=== PATIENT | male | born 1950 ===

== ENCOUNTER 2018-11-09 07:12 | Day surgery (SDC) | payer MEDICARE ==
[2018-11-05 10:25] VITALS: BMI 19.8
[2018-11-09] MEDS ORDERED: Lidocaine 2% MPF (5 ml) Inj ONE (09:52)
[2018-11-09] MEDS ORDERED: Bupivacaine HCl 0.5% PF (10 ml) Inj ONE (09:52)
[2018-11-09] MEDS ORDERED: Clindamycin 600mg/50ml NS 600 MG/50 ML BAG IVPB ONE (09:54)
[2018-11-09] MEDS ORDERED: Midazolam 2 MG/2 ML VIAL ONE (10:10)
[2018-11-09] MEDS ORDERED: Propofol 10 mg/ml Inj (20 ML) ONE (10:10)
--- NOTE | 2018-11-09 10:56 | PCM.SURG1 ---
Surgeon's Initial Post Op Note - Surgeon's Notes Surgeon: Dr. Brenda Carrasco Director Of Rehabilitation: Dr. Burks PGY-2 Type of Anesthesia: IV Sedation, Local Anesthesia Administered By: Dr. Ferrer Pre-Operative Diagnosis: right foot ulceration Operative Findings: see dictation. injectables: 8 cc of 2% lidocaine plain and 0.5% marcaine plain, 2-0 prolene, 4-0 monocril, application of ARON wound VAC and integra graft 2x2 Post-Operative Diagnosis: same Operation Performed: right foot debridement of ulcerations of all nonviable soft tissue with application of graft with application of ARON wound VAC therapy Specimen/Specimens Removed: none Estimated Blood Loss: EBL {In ML}: 1 Blood Products Given: N/A Drains Used: No Drains Post-Op Condition: Good Date of Surgery/Procedure: 11/09/18 Time of Surgery/Procedure: 11:10
[2018-11-09] MEDS ORDERED: Oxycodone/Acetaminophen 5/325 mg Tab PO PRN ×2 (11:02→11:18)
[2018-11-09] MEDS ORDERED: HYDROmorphone 0.5 mg/0.5 ml ISec IVP PRN (11:18)
[2018-11-09 12:59] VITALS: O2SAT 97
[2018-11-09 13:14] VITALS: PULSE 73
[2018-11-09 13:15] VITALS: BP 135/79; RESP 11; TEMP 97.5
[2018-11-09] MEDS ORDERED: METFORMIN HCL PO SCH (18:00)
[2018-11-09] MEDS ORDERED: SITAGLIPTIN PHOS PO SCH (18:00)
[2018-11-09] MEDS ORDERED: (Lantus) Insulin Glargine, Recombinant SC SCH (22:00)
[2018-11-10] MEDS ORDERED: [UNRECOGNIZED DRUG - OTHER] PO SCH (10:00)
[2018-11-10] MEDS ORDERED: Pantoprazole 40 mg EC Tab PO SCH (10:00)
[2018-11-10] MEDS ORDERED: Lactobacillus Acidophilus 500 MU Cap PO SCH (10:00)
[2018-11-10] MEDS ORDERED: Multiple Vitamins Tab PO SCH (10:00)
--- NOTE | 2018-11-12 12:38 | PCM.OP ---
Operative Report - Operative Report Date of Surgery/Procedure: 11/09/18 Time of Surgery/Procedure: 11:10 Surgeon: Dr. Brenda Carrasco DPM Home School Teacher: Dr. Tommy Burks DPM PGY-2 Anesthesia/Sedation: Dr. Ferrer/IV Sedation with local Pre-Operative Diagnosis: right foot nonhealing ulceration Post-Operative Diagnosis: right foot nonhealing ulceration Indication for Surgery: Indications: The patient is a 68 year-old male with the above diagnoses. The patient has exhausted conservative treatment at this time and now requests surgical intervention. The patient signed the consent after careful explanation of risks, benefits, complications and alternatives for surgical procedure. No guarantees were given nor implied. NPO status was confirmed prior to taking pt to the OR. The patient was brought to the operating room and placed on the operating room table in supine position. A well-padded pneumatic ankle tourniquet was placed to the patient's ankle in a supramalleolar position. After induction of IV sedation, the patient received a total of 8cc mL of 1:1 mixture of 0.5% Marcaine and 2% lidocaine plain in local block fashion to the right foot. Once local anesthesia was achieved, the right foot was then prepped and draped in usual sterile manner. No tourniquet was used during the entire procedure. Operative Findings: see procedure note below Procedure/Operation Description: Procedure #1: Debridement of right lower extremity wound with application of graft Attention was directed to the distal medial aspect of the patient's right foot, where a non-healing wound measuring approximately 7cm x 6cm x 0.5cm was noted with 70% fibrotic and 30% granular wound base. 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 Unitizing at #15 blade, curette, and a pickup, the wound was excisionally debrided of all fibrotic and non-viable tissue until fresh, healthy, bleeding granular tissue appeared at the surgical field. A sterile #15 blade and forceps was used to excise all hypertrophic tissue from the wound borders. Next, the ulcer was then irrigated with copious amounts of normal sterile saline. The integra bilayer graft measuring 2 x 2 cm was prepared in a basin using normal sterile saline solution. After the graft was prepared, the graft was placed over the ulceration site covering the most distal medial aspect of the ulceration. The graft adhered the to base of the ulceration site well and was noted to fully cover the site. The graft was then secured to the wound edges using 4-0 monocril. Procedure #2: application of ARON wound VAC therapy Next attention was directed to distal medial aspect of the right forefoot. The ARON dressing was applied to the wound bed and extra strips placed over the outside edge to help hold the dressing in place for a tight seal. Next the port tubing was connected to the pump tubing. When the pump was turned on, air was noted to be pulled out of the dressing and excess fluid from the wound. Then, the green indictor turned on indicating continuously negative pressure wound therapy is achieved. The entire foot was then dressed with kerlix, dsd, and TANO. Estimated Blood Loss: 1 cc Complications: none Discharge & Condition: Postoperative Condition: The patient tolerated the anesthesia and procedure well and was escorted to the recovery room with vital signs stable and neurovascular status intact to the right foot. Patient is to weight bear as tolerated to right lower extremity. Patient to follow up with Dr. Carrasco in podiatry clinic on Friday on 11/16/18 as instructed. Postoperative instructions given to patient. ARON therapy is continuously running and indictor green light is on with tight seal.
== END 2018-11-09 14:40 | disposition home or self-care (01) ==
LOC: C.SDS 07:12
PROVIDERS: ATTEND Podiatrist Foot & Ankle Surgery
DX: L97.519 Non-pressure chronic ulcer of other part of right foot with unspecified severity (principal)
CPT/HCPCS: 11043; 15004; 15275; 82948; C1781; J2250; J2704; J3010; J7070

== ENCOUNTER 2018-12-21 05:53 | Day surgery (SDC) | payer MEDICARE ==
[2018-11-05 10:25] VITALS: BMI 19.8
[2018-12-21] MEDS ORDERED: Lidocaine 2% MPF (5 ml) Inj ONE (07:25)
[2018-12-21] MEDS ORDERED: Bupivacaine HCl 0.5% PF (10 ml) Inj ONE (07:26)
[2018-12-21] MEDS ORDERED: Midazolam 2 MG/2 ML VIAL ONE (08:00)
[2018-12-21] MEDS ORDERED: Lidocaine Hydrochloride 5 ML INJ ONE (08:00)
[2018-12-21] MEDS ORDERED: Propofol 10 mg/ml Inj (20 ML) ONE (08:00)
[2018-12-21] MEDS ORDERED: ceFAZolin 1 gm in NS 1 GM/100 ML BAG IVPB ONE (08:46)
[2018-12-21] MEDS ORDERED: Acetaminophen 650mg/20.3ml solution UD PO PRN (10:07)
[2018-12-21] MEDS ORDERED: Oxycodone/Acetaminophen 5/325 mg Tab PO PRN ×2 (10:07)
--- NOTE | 2018-12-21 10:12 | PCM.SURG1 ---
Surgeon's Initial Post Op Note - Surgeon's Notes Surgeon: Dr. Brenda Carrasco Sand Technologist: Macho Lamas Type of Anesthesia: IV Sedation, Local Anesthesia Administered By: Dr. Segura Pre-Operative Diagnosis: right foot nonhealing ulcer submet 2 Operative Findings: see dictation. materials: 2-0 prolene. injectibles: 10 cc of 1:1 mixture of .5% marcaine and 2% lidocaine- preop. postop- 10 cc of 1:1 mixture of .5% marcaine and 2% lidocaine. 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
[2018-12-21] MEDS ORDERED: Lactated Ringer's 1,000 ML IV SCH (10:15)
[2018-12-21] MEDS ORDERED: HYDROmorphone 0.5 mg/0.5 ml ISec IVP PRN (10:15)
--- NOTE | 2018-12-21 10:36 | RAD ---
Date of service: 12/21/2018 PROCEDURE: Right Foot Radiographs. HISTORY: s/p second met head resection. patient in PACU COMPARISON: None. FINDINGS: BONES: The skin is status post osteotomy 2nd metatarsal head. There is evidence of old fracture or osteotomy of the distal aspect of the 3rd metatarsal diaphysis. There is callus seen about this fracture or osteotomy site at the distal aspect of the 3rd metatarsal. The patient is status post amputation mid 1st metatarsal. JOINTS: Normal. SOFT TISSUES: Surgical drain along plantar aspect of foot OTHER FINDINGS: None. IMPRESSION: Osteotomy distal 2nd metatarsal. Old fracture/osteotomy distal 3rd metatarsal. 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
[2018-12-21 11:24] VITALS: TEMP 97.6
[2018-12-21 11:49] VITALS: RESP 16
[2018-12-21 12:21] VITALS: BP 133/62; PULSE 83; O2SAT 98
--- NOTE | 2018-12-22 07:28 | RAD ---
Date of service: 12/21/2018 PROCEDURE: Intraoperative Fluoroscopy. HISTORY: Right foot nonhealing ulcer FINDINGS: Fluoroscopic assistance was provided for partial resection of bone at the 2nd digit metatarsal bone. Please refer to the operative report from JEFFERY Small.
--- NOTE | 2018-12-23 07:20 | OP ---
PROCEDURE DATE: 12/21/2018 PREOPERATIVE DIAGNOSIS: Right foot nonhealing ulcer, submetatarsal 2 with osteomyelitis of the 2nd metatarsal head POSTOPERATIVE DIAGNOSIS: Right foot nonhealing ulcer, submetatarsal 2 with osteomyelitis of the 2nd metatarsal head PROCEDURE: Resection of second metatarsal head and wound debridement with the use of Versajet with partial primary closure and application of ARON wound VAC. SURGEON: Brenda Carrasco DPM. SPLICER APPRENTICE: RITU GALAVIZ DPM, PGY-1; Macho Lamas DPM, PGY-2. ANESTHESIOLOGIST: Katelyn Joyce MD. TYPE OF ANESTHESIA: IV sedation with local anesthesia. INDICATIONS: The patient is a 68-year-old male with the above diagnosis. The patient has exhausted all conservative treatments at this time and now requires surgical intervention. The patient signed the consent after careful explanation of risks, benefits, complications, and alternatives for the surgical procedures. No guarantees were given nor implied. PREPARATION: The patient was brought into the operating room and placed on the operating room table in a supine position. A time-out was performed for identification of the correct patient and procedure. The patient received a total of 10 mL of 0.5% Marcaine plain and 2% lidocaine plain. Once local anesthesia was achieved, right foot was prepped and draped in normal sterile manner and the procedure begun. DESCRIPTION OF PROCEDURE: Attention was directed to the patient's right foot where a partial first ray amputation was noted. Submetatarsal 2, an ulcer was noted measuring approximately 0.7 cm x 0.5 cm. Second metatarsal head was noted to be protruding out of the ulcer. Mild malodor was noted. No erythema was appreciated. With the use of #15 blade, a linear incision was made extending from the proximal aspect of the ulcer. The incision was deepened through the subcutaneous tissue all the way down to the bone using a #15 blade. At this time, a second metatarsal head was noted to be loosely attached to skin and was removed. Once adequate bone was exposed, a sagittal saw was utilized to resect the second metatarsal head and neck. Bone was sent to pathology and cultures were taken. All necrotic nonviable and devitalized tissue and bone was then debrided using a Versajet at setting 7. Remaining sharp bone was then debrided down to smoothness with a bone rasp. The ulcer was thoroughly flushed with normal sterile saline. Prolene 2-0 was then utilized to reapproximate the skin in a retention suture type fashion. The site was then dressed with ARON wound VAC. The machine was noted to be functioning. The site was then dressed with sterile gauze, ABD, Kerlix, and Axel without any compression. Postoperative:The patient tolerated the local anesthesia and procedure well and was escorted to the recovery room with vital signs stable and neurovascular status intact to the right foot. The patient is to weight bear as tolerated to the right lower extremity on the heel, and the patient will follow up with Dr. Carrasco in her office within a week. Ritu Galaviz Brenda Carrasco DPM [id number]
== END 2018-12-21 12:22 | disposition home or self-care (01) ==
LOC: C.SDS 05:53
PROVIDERS: ATTEND Podiatrist Foot & Ankle Surgery
DX: L97.514 Non-pressure chronic ulcer of other part of right foot with necrosis of bone (principal); M86.171 Other acute osteomyelitis, right ankle and foot
CPT/HCPCS: 28810; 73630; 82948; 87070; 88304; J0690; J2250; J2704; J3010